=== PATIENT | female | born 1955 | race Two or more races ===

== ENCOUNTER 2024-05-25 13:09 | Emergency (ER) | payer OTHER ==
[~2024-05-25] VITALS: Ht 149.9 cm; Wt 68.0 kg
[2024-05-25] MEDS ORDERED: TAMS0.4C PO (13:33)
[2024-05-25] MEDS ORDERED: PREGABALIN75 MG PO (13:34)
[2024-05-25] MEDS ORDERED: ESTRADIOL42.5 GM (13:35)
[2024-05-25] MEDS ORDERED: TAMSULOSIN HCL 0.4 MG CAP PO ONE ×2 (14:09→14:15)
[2024-05-25] MEDS ORDERED: KETOROLAC TROMETHAMINE 60 MG VIAL IM ONE ×2 (14:10→14:15)
[2024-05-25] MEDS ORDERED: CEFTRIAXONE SODIUM 1,000 MG VIAL ONE (14:10)
[2024-05-25] MEDS ORDERED: CEFTRIAXONE SODIUM 1,000 MG VIAL IV ONE (14:15)
[2024-05-25 14:24] LABS: HEMATOCRIT 35.1 % (36.0-45.00); HEMOGLOBIN 12.2 g/dL (12.0-15.00); MEAN CELL VOLUME 95.5 fL (80.00-100.00); MEAN CORPUSCULAR HEMOGLOBIN 33.1 pg (27.00-32.0); MEAN CORPUSCULAR HGB CONC 34.7 g/dl (32.0-36.0); RED BLOOD COUNT 3.68 M/uL (4.00-6.00); RED CELL DISTRIBUTION WIDTH 16.5 % (11.5-14.5)
[2024-05-25 14:37] LABS: PLATELET COUNT 109 K/uL (150-450)
[2024-05-25 14:50] LABS: ALBUMIN 3.8 gm/dL (3.4-5.0); BILIRUBIN TOTAL 1.1 mg/dL (0.3-1.2); CALCIUM 9.1 mg/dL (8.5-10.1); CREATININE SERUM 1.05 mg/dL (0.55-1.02); GFR 52.12; GLOBULINA 2.5 G/DL (2.4-3.5); POTASSIUM 4.4 mEq/L (3.5-5.1); TOTAL PROTEIN 6.3 gm/dL (6.4-8.2)
[2024-05-25 15:33] LABS: URINE APPEARANCE Cloudy; URINE BILIRRUBIN Small (NEGATIVE); URINE BLOOD Negative; URINE COLOR Dark Yellow; URINE GLUCOSE Negative (NEGATIVE); URINE KETONE 15 (NEGATIVE); URINE LEUKOCYTE Small; URINE NITRATE Negative; URINE PROTEIN Trace (NEGATIVE)
[2024-05-25 15:38] LABS: URINE CAST 8.83 uL (0.0-1.40); URINE EPITHELIAL CELLS 114.9 uL (0.0-38.8); URINE RBC 61.8 uL (0.0-20.8); URINE WBC 66.8 uL (0.0-23.2)
[2024-05-25] MEDS ORDERED: KETOROLAC TROMETHAMINE 10 MG TABLET PO ONE (19:30)
== END 2024-05-25 19:37 | disposition home or self-care (01) ==
LOC: ER 13:11
PROVIDERS: General Practice
DX: R10.9 Unspecified abdominal pain (principal); Z88.6 Allergy status to analgesic agent
CPT/HCPCS: 36415; 74176; 96365; 96372; 99284; J0696; J1885